=== PATIENT | female | born 1990 | race Caucasian/White ===

== ENCOUNTER 2023-04-22 01:24 | Inpatient (IN) ==
[2023-04-22] MEDS ORDERED: LIDOCAINE 1% LOCAL 20 ML VIAL INFIL PRN (02:59)
[2023-04-22] MEDS ORDERED: OXYTOCIN 30 UNITS/500 ML BAG IV PRN (02:59)
--- NOTE | 2023-04-22 03:14 | History & Physical Report ---
Date of Service April 22, 2023 Assessment & Plan (1) Previous delivery affecting , antepartum: (2) Desires (vaginal after ) trial: Plan 33 yo at 40 3/7 wga admitted w/ srom VSS Fetus cat 1 SROM - Notes indicate that pt desires trial of labor. Extensively reviewed tolac vs repeat CS with risks for tolac including vaginal laceration, uterine rupture and potential catastrophic consequence including hysterectomy, maternal and/or injury and/or , blood transfusion, impact on future deliveries. Discussed potential use for pitocin for augmentation, impact of pitocin on rupture risk. Pt verbalized understanding of discussion and consent for signed after all questions answered to best of my ability and to apparent satisfaction. It sounds like true rom time was around 11pm and is starting to contract, is more dilated now than was in the office on Thursday. Will give couple hours to see if will continue to progress. GBS neg Epidural prn, discussed use of epidural in setting of tolac and pt aware History of Present Illness Chief Complaint: LOF Primary Care Provider: NO PCP 33 yo at 40 3/7 wga presents w/ c/o LOF. Had ?lof earlier today and was instructed to put a pad on with plan for eval if increase in leaking but it did not. Then around 11pm earlier this evening had a large gush and continued leaking after that. She called in as ctx had not started at that time and she was instructed to present for eval. 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 pLTCS for breech G2 current denies hx STIs Allergies Allergy/AdvReac Type Severity Reaction Status Date / Time No Known Allergies Allergy Verified 04/20/23 13:01 Home Medications Medication Instructions Recorded Confirmed Type prenat.vits,phan,umc-itep-jfjga 1 tab PO QAM 08/26/22 04/20/23 History iron 18 mg tablet 18 mg PO QAM 04/17/23 04/20/23 History Patient History Medical History History of chicken pox Tricuspid regurgitation mild Surgical History (Updated 04/22/23 @ 03:08 by Honey Ray MD) Hx of section Family History Father Myocardial infarction age 35 Leukemia Denies family history of Ovarian cancer Breast cancer Colorectal cancer Social History (Updated 09/10/22 @ 10:57 by Jocelyn Melo) Smoking Status: Never smoker Second Hand Exposure: No; Do You Dip or Chew Tobacco: No; Hx Alcohol Use: No Hx Substance Use: No Preferred Language: Latvian Communication Ability: Effective Office Receptionist Required: No Beliefs That Will Affect Care: None marital status: marital status details: Brandon (34) [phone] Current Living Situation: Spouse Current Living Situation Comment: and daughter current occupational status: unemployed 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 Other Information That Helps Us Care for You: No Feels Safe at Home: Yes Safety Concerns: Feels Safe At This Time Assistive Devices: None Physical Exam Genitourinary: Manual OB Exam: + cervical dilation (1.5-2), + cervical effacement 50%, + station -2 and + amniotic fluid (+nitrazine, pooling, ferning) OB Exam Monitor Tracing: + external FHT monitor used, + external uterine monitor used (q8) and + category I (120/mod/+accel/-decel) Results & Data Vital Signs (Past 12 Hours) Vital Signs Temp Pulse Resp BP 04/22/23 01:40 98.1 F 65 17 121/58 L Laboratory Results OB Labs: Blood Type B Negative 10/08/22 Antibody Screen NEGATIVEB 01/26/23 Hemoglobin 11.2 g/dl (12.0-16.0) L 01/26/23 Hematocrit 32.4 % (37.0-47.0) L 01/26/23 Mean Corpuscular Volume 86.4 fL (80.0-100.0) 10/08/22 Platelet Count 224 K/uL (130-400) 10/08/22 Rubella IgG Antibody Immune (Immune) 10/08/22 Rapid Plasma Reagin Nonreactive (Nonreactive) 10/08/22 Hepatitis B Surface Antigen. NON-REACTIVE (NON-REACTIVE) 10/08/22 Hepatitis C Antibody (EIA) NON-REACTIVE (NON-REACTIVE) 10/08/22 HIV (1&2) Ag and Ab Confirmation NON-REACTIVE (NON-REACTIVE) 10/08/22 Glucose 1 Hour 50 gm Load 82 mg/dl (70-130) 01/26/23 OB Optional Labs: Chlamydia trachomatis RNA Not Detected (NotDetected) 09/11/22 Neisseria gonorrhoeae RNA Not Detected (NotDetected) 09/11/22 Labs Reviewed: low risk panorama--ak Diagnostic Findings ant r lat plac Coding Level of Care Code None Diagnoses Previous delivery affecting , antepartum O34.219 Desires (vaginal after ) trial O34.219
[2023-04-22 03:28] LABS: Hematocrit (blood only) 32.4 % (37.0-47.0); Hemoglobin 11.5 g/dl (12.0-16.0); Mean Corpuscular Hemoglobin 31.9 pg (25.0-34.0); Mean Corpuscular Hgb Conc 35.5 g/dL (32.0-36.0); Mean Platelet Volume 9.7 fL (9.4-12.4); Platelet Count 216 K/uL (130-400); RDW Coefficient of Variation 12.3 % (11.5-14.5); RDW Standard Deviation 40.3 fL (36.4-46.3); White Blood Count 11.18 K/ul (4.8-10.8)
[2023-04-22] MEDS: LACTATED RINGER'S 1,000 ML IV PRN ×2 (07:05→09:50)
--- NOTE | 2023-04-22 08:09 | Labor Progress Brief Note ---
Date of Service April 22, 2023 Subjective Says some ctx are stronger and more painful Assessment & Plan (1) Previous delivery affecting , antepartum: (2) Desires (vaginal after ) trial: Plan 33 yo at 40 3/7 wga admitted w/ srom VSS Fetus cat 1 SROM - SVE is unchanged. Discussed use of pitocin to help with contractions, risks and benefits of it. She would like to wait 1 more hour and walk around more and re-evaluate GBS neg Epidural prn, discussed use of epidural in setting of tolac and pt aware Admission and Anticipated Discharge Date Admission Date: April 22, 2023 Physical Exam Genitourinary: Manual OB Exam: + cervical dilation (1.5-2), + cervical effacement 50% and + station -2 OB Exam Monitor Tracing: + external FHT monitor used, + external uterine monitor used (irreg) and + category I (120/mod/+accel/-decel) Results & Data Vital Signs (Past 12 Hours) Vital Signs Temp Pulse Resp BP 04/22/23 07:05 97.7 F 16 04/22/23 07:05 16 04/22/23 07:05 16 04/22/23 07:05 97.7 F 16 04/22/23 04:45 98.2 F 04/22/23 07:03 78 115/70 04/22/23 03:24 18 04/22/23 03:24 98.2 F 71 18 126/61 04/22/23 01:40 98.1 F 65 17 121/58 L Coding Level of Care Code None Diagnoses Previous delivery affecting , antepartum O34.219 Desires (vaginal after ) trial O34.219
[2023-04-22] MEDS ORDERED: LACTATED RINGER'S 1,000 ML IV SCH ×2 (10:00→13:00)
--- NOTE | 2023-04-22 10:03 | Labor Progress Brief Note ---
Date of Service April 22, 2023 Subjective Assumed care from Dr. Ray. Had just been checked and had essentially made no changed. Patient has a rare contraction on the monitor that she does not even really appreciate. Ruptured for 11 hours with no onset of labor. Assessment & Plan (1) PROM (premature rupture of membranes): (2) Previous delivery affecting , antepartum: Plan Long conversation about the situation and the options. I do not feel continued expectant management is appropriate given ruptured for almost 12 hours--GBS neg. No way to know when she will start to labor. Need to either proceed with c/s or start with pitocin augmentation. Pitocin is not contraindicated in this situation, and I have had patients successfully in this prom situation. again discussed the risks of karin--1% chance of uterine rupture, intolerance of labor, ftp and then need for c/s. Discussed increased risk of c/s after failed karin. r/b/se of c/s--The risks of surgery were discussed with the patient including the risks of anesthesia, bleeding requiring transfusion, infection, poor wound healing, urinary retention, damage to surrounding structures including bowels, bladder, vessels, nerves and ureters that may require further surgery, hospitalization or intervention. The other risks of any surgery were discussed including heart attack, blood clots, stroke or . Consent reviewed and signed. Patient understands by having her second c/s , she will be a automatic repeat c/s in further pregnancies. She understands that a successful KARIN has less risk overall to the patient and would allow a KARIN in a subsequent . She wishes to proceed with c/s. Admission and Anticipated Discharge Date Admission Date: April 22, 2023 Physical Exam Physical Exam: cx--deferred toco--rare, irritability efm--110 with mod variability, small accels, no decels Results & Data Vital Signs (Past 12 Hours) Vital Signs Temp Pulse Resp BP 04/22/23 07:05 36.5 C 16 04/22/23 07:05 16 04/22/23 07:05 16 04/22/23 07:05 36.5 C 16 04/22/23 04:45 36.8 C 04/22/23 07:03 78 115/70 04/22/23 03:24 18 04/22/23 03:24 36.8 C 71 18 126/61 04/22/23 01:40 36.7 C 65 17 121/58 L Coding Level of Care Code None Diagnoses PROM (premature rupture of membranes) O42.90 Previous delivery affecting , antepartum O34.219
[2023-04-22] MEDS ORDERED: WATER, STERILE FOR INJ 10 ML VIAL ONE (10:17)
[2023-04-22] MEDS ORDERED: OXYTOCIN 10 UNITS/ML VIAL ONE (10:17)
[2023-04-22] MEDS ORDERED: MoRPHine SULFATE PF 1 MG/ML 10 ML AMP/VIAL ONE (10:17)
[2023-04-22] MEDS ORDERED: fentaNYL citrate PF 100 MCG/2 ML VIAL ONE (10:17)
[2023-04-22] MEDS ORDERED: PHENYLEPHRINE HCL 10 MG/ML VIAL ONE (10:17)
[2023-04-22] MEDS ORDERED: CITRIC ACID/SODIUM CITRATE 15 ML UDC ONE (10:24)
[2023-04-22] MEDS ORDERED: LACTATED RINGER'S 500 ML IV PRN (10:29)
[2023-04-22] MEDS ORDERED: ePHEDrine sulfate 50 MG/ML AMP IV PRN (10:29)
[2023-04-22] MEDS ORDERED: ONDANSETRON INJ 2 MG/ML 2 ML VIAL IV PRN ×2 (10:29→12:47)
[2023-04-22] MEDS ORDERED: KETOROLAC 30 MG/ML VIAL IV PRN ×3 (10:29→12:47)
[2023-04-22] MEDS ORDERED: NALBUPHINE HCL INJ 10 MG/ML AMP IV PRN (10:29)
[2023-04-22] MEDS ORDERED: MoRPHine SULFATE PF 1 MG/ML 10 ML AMP/VIAL INT SPINAL ONE (10:29)
[2023-04-22] MEDS ORDERED: NALOXONE HCL 0.08 MG in SYRINGE 1.8 ML IV PRN (10:29)
[2023-04-22] MEDS ORDERED: diphenhydrAMINE 50 MG/ML VIAL IV PRN ×2 (10:29→12:47)
[2023-04-22] MEDS ORDERED: NALOXONE HCL 1 MG in SODIUM CHLORIDE 0.9% 1000ML 1,000 ML IV PRN (10:29)
[2023-04-22] MEDS ORDERED: NALOXONE HCL 0.4 MG/1 ML VIAL/CARP IV PRN ×2 (10:29→12:31)
[2023-04-22] MEDS ORDERED: SODIUM CHLORIDE 0.9% 1000ML 1,000 ML IV SCH ×2 (10:30→12:45)
[2023-04-22] MEDS ORDERED: NO NARCOTICS OR SEDATIVES SCH (10:30)
[2023-04-22] MEDS ORDERED: DC INTRASPINAL MORPHINE SCH (10:30)
--- NOTE | 2023-04-22 10:40 | Anesthesiology Consultation ---
Date of Service April 22, 2023 Assessment & Plan ASA ASA2 Proposed Anesthesia Anesthesia Type: Spinal Risk / Benefits Reviewed With: PT / POA / Parent / Guardian, Accepts Plan and Informed Consent Obtained History Surgery Operation Date: 04/22/23 11:00 Proposed Procedures p Section in LD(Bilateral) - Zayda Milner MD, FACOG Height/Weight Height: 5 ft 10.08 in Weight: 73.936 kg Allergies Allergy/AdvReac Type Severity Reaction Status Date / Time No Known Allergies Allergy Verified 04/20/23 13:01 Medications Home Medications Medication Instructions Recorded Confirmed Last Taken prenat.vits,phan,jzo-nkti-xciqo 1 tab PO QAM 08/26/22 04/20/23 Unknown iron 18 mg tablet 18 mg PO QAM 04/17/23 04/20/23 Unknown Active Medications Generic Name Dose Route Start Last Admin Trade Name Freq PRN Reason Stop Dose Admin Citric Acid/Sodium Citrate 30 ml 04/23/23 06:00 04/22/23 10:25 Citric Acid/Sodium Citrate 15 Ml Udc PO 04/23/23 06:01 30 ml PREOP MICHAEL Administration Lactated Ringer's 1,000 mls @ 125 mls/hr 04/22/23 02:59 04/22/23 09:50 Lr IV 04/24/23 02:58 999 mls/hr .Q8H PRN Administration L&D Protocol Protocol Past Medical History Medical History History of chicken pox Tricuspid regurgitation mild Exercise / Class Metabolic Activity II 4-5 Yardwork/Stairs/Walk up hill Past Family History Family History Father Myocardial infarction age 35 Leukemia Denies family history of Ovarian cancer Breast cancer Colorectal cancer Past Surgical History Surgical History Hx of section Past Anesthesia History No Hx of Anesthesia Complications and No Family Hx of Anesthesia Complications History of PONV No Hx of PONV and No Hx of Motion Sickness Social History Smoking Status: Never smoker Do You Dip or Chew Tobacco: No Hx Alcohol Use: No Hx Substance Use: No substance use type: does not use Review of Systems denies fever/cough/ colds/ chest pain/ SOB/ KANIKA denies KANIKA Physical Exam Vital Signs Last Vital Signs Temp 36.7 C 04/22/23 09:05 Pulse 78 04/22/23 07:03 Resp 16 04/22/23 07:05 BP 115/70 04/22/23 07:03 ENMT Mouth: no TMJ abnormality and no dentition abnormality Thyromental Distance: > or= 3.5 Finger Breadths Mallampati Class: II Neck neck extension not limited Respiratory normal respiratory effort; no respiratory distress Auscultation: lungs clear to auscultation bilaterally Cardiovascular Rate/Rhythm: regular rate and regular rhythm Neurologic moves all extremities Psychiatric Orientation: alert and oriented x 3 Testing Laboratory Results 04/22/23 03:10 Blood Type B Negative 04/22/23 03:10 Antibody Screen NEGATIVE 04/22/23 03:10
[2023-04-22] MEDS ORDERED: MoRPHine SULFATE PCA 30 MG/30 ML IV PRN (12:31)
[2023-04-22] MEDS ORDERED: diphenhydrAMINE Capsule 25 MG CAP PO PRN (12:47)
[2023-04-22] MEDS ORDERED: BENZOCAINE 20% SPRY 85 APPLN/85 GM CAN EXT PRN (12:47)
[2023-04-22] MEDS ORDERED: PROMETHAZINE HCL 25 MG in SODIUM CHLORIDE 0.9% 50 ML IV PRN (12:47)
[2023-04-22] MEDS ORDERED: MEPERIDINE HCL 50 MG/ML CARP IV PRN (12:47)
[2023-04-22] MEDS ORDERED: HYDROCORTISONE ACETATE 25 MG SUPP PR PRN (12:47)
[2023-04-22] MEDS ORDERED: SENNA 8.6 MG TAB PO PRN (12:47)
[2023-04-22] MEDS ORDERED: MAGNESIUM HYDROXIDE SUSP 30 ML UDC PO PRN (12:47)
[2023-04-22] MEDS ORDERED: DIPHTHERIA/TETANUS/PERTUSSIS Vaccine (Tdap, Age 7+yrs) 0.5mL SYR/VL IM ONE (12:47)
--- NOTE | 2023-04-22 12:51 | Operative Report ---
PG Post Operative Report Pre & Post Diagnosis Operation Date: 04/22/23 11:00 Pre-Op Diagnosis: PROM at 40 3/7 weeks hx of previous desires repeat Post-Op Diagnosis: same I identified the patient and participated in the time-out.: Yes Procedure Operation Date: 04/22/23 11:00 Actual Procedures p Repeat lower transverse Section in LD(Bilateral) - Zayda Milner MD, FACOG Surgeon Zayda Milner MD, FACOG Information Technology Professor Oj Garcia RN Estimated Blood Loss 500 Findings Consistent with Post-Op Diagnosis viable female infant in cephalic presentation, apgars 8/9. utx/tubes/ovs normal bilaterally Fluids 2000cc uop--200cc clear Specimens none Drains bustos Anesthesia Type Spinal Complications none Disposition Accompanied Patient To Recovery: Yes Disposition: L&D Indications Patient is a 33yowf with iup at 40 3/7 weeks. Patient presented with p rom at 11pm the night before. Unfortunately spontaneously labor did not ensue. cx 1-2 cm. Discussed whether to proceed with pitocin augmentation to attempt RACHNA or proceed with c/s. After discussing the r/b/se, she has elected to proceed with repeat c/s. Description of Procedure The patient was taken to the operating room where she was identified verbally and by bracelet. She was seated on the operating table where a spinal anesthetic was placed by anesthesia. She was then placed in the supine position with a leftward tilt. A Bustos catheter was placed sterilely. the patient was prepped and draped in a normal standard fashion. the anesthetic was tested and found NOT to be adequate. The patient was undrapped and another spinal was p laced. She was reprepped and draped. The anesthetic was then tested and found to be adequate. A time-out was held, identifying correct patient, procedure, positioning and preoperative antibiotics. There were no concerns. A Pfannenstiel skin incision was made with a knife and taken down to the underlying layer of fascia with the knife and Bovie electrocautery. Bleeding was attended to with the Bovie. The fascia was incised in the midline with the knife and taken out laterally with scissors. The superior edge of the fascial incision was grasped, elevated and the underlying layer of rectus muscle was taken off bluntly and with scissors. In a similar fashion, the inferior edge of the fascial incision was grasped, elevated and the underlying layer of rectus muscle was taken off bluntly and with scissors. The muscles were bluntly in the midline. The peritoneum was entered bluntly. The incision was then stretched. The bladder blade was placed. The vesicouterine peritoneum was identified, entered with scissors and taken out laterally with scissors. The bladder flap was created digitally A hysterotomy incision was scored with a knife and the incision was stretched superiorly and inferiorly with the blow molding machine operator's fingers. The operators hand was placed into the incision and the head was delivered atraumatically. No nuchal cord. The nose and mouth were bulb suctioned. the rest of the infant was then delivered without difficulty. Loose nuchal cord x 1 reduced. The nose and mouth were again bulb suctioned. The cord was clamped and cut and the infant was then handed off to the awaiting payroll accounting clerk for drying and attention. Cord blood and segment were obtained. The placenta was expressed. The uterus was exteriorized and cleared of all clot and debris with moistened laparotomy sponges. The hysterotomy incision was repaired in two layers, the first in a running locked layer, the second in an imbricating layer. Hemostasis was noted to be good. Posterior cul-de-sac was irrigated and cleared of all clot and debris. The hysterotomy incision was again inspected and found to be hemostatic. the uterus was reinteriorized. Hysterotomy incision was again inspected and several figure of 8 sutures were placed in order for the incision to be hemostatic. Dyllan was placed over the incision and it was dry after 2 minutes of pressue. Rectus muscles were reapproximated with several interrupted stitches of 0 Vicryl. The fascia was then reapproximated with 0 Vicryl starting at the edges and meeting in the midline. The subcuticular tissues were copiously irrigated and bleeding was attended to with cautery. The skin was then closed with 4-0 Vicryl in a subcuticular fashion. All sponge , lap , and needle counts correct times two. The patient tolerated the procedure well and taken to the recovery room in stable condition. I attest to the content of the Intraoperative Record and any orders documented therein. Any exceptions are noted below. OB Procedure Charges 43337
--- NOTE | 2023-04-22 13:55 | Anesthesiology Progress Note ---
Date of Service April 22, 2023 Anesthesia Post Procedure Vital Signs Vital Signs: Temp Pulse Resp BP Pulse Ox 04/22/23 13:40 16 04/22/23 13:30 16 04/22/23 13:20 16 04/22/23 13:10 16 04/22/23 13:00 16 04/22/23 12:50 36.5 C 18 04/22/23 07:05 36.5 C 16 04/22/23 07:05 16 04/22/23 13:53 73 96 04/22/23 13:48 60 96 04/22/23 13:46 59 L 114/61 04/22/23 13:43 64 97 04/22/23 13:38 63 97 04/22/23 13:36 65 120/62 04/22/23 13:33 58 L 97 04/22/23 13:28 67 97 04/22/23 13:26 64 124/59 L 04/22/23 13:23 75 97 04/22/23 13:18 63 97 04/22/23 13:16 69 128/71 04/22/23 13:13 79 96 04/22/23 13:08 66 97 04/22/23 13:03 71 100 04/22/23 12:58 66 99 04/22/23 12:53 63 100 04/22/23 12:50 64 109/57 L 04/22/23 12:48 59 L 100 04/22/23 09:05 36.7 C 04/22/23 07:05 16 04/22/23 07:05 36.5 C 16 04/22/23 04:45 36.8 C 04/22/23 07:03 78 115/70 04/22/23 03:24 18 04/22/23 03:24 36.8 C 71 18 126/61 04/22/23 01:40 36.7 C 65 17 121/58 L Pain Intensity Abdomen: Pain Intensity: 1 Transfer of Care Handoff Completed per policy Notes Mental Status: alert / awake / arousable and participated in evaluation Patient Amnestic to Procedure: Yes Nausea / Vomiting: adequately controlled Pain: adequately controlled Airway Patency, RR, SpO2: stable & adequate BP & HR: stable & adequate Hydration State: stable & adequate Anesthetic Complications: no major complications apparent and Pt Satisfied with anesthetic care
[2023-04-22] MEDS: SIMETHICONE 80 MG CHEW PO SCH ×2 (17:56→22:14)
[2023-04-22] MEDS: OXYTOCIN 20 UNITS in LACTATED RINGER'S 1,000 ML IV SCH (20:49)
[2023-04-22] MEDS: DOCUSATE SODIUM 100 MG CAP PO SCH (22:14)
[2023-04-23] MEDS ORDERED: CITRIC ACID/SODIUM CITRATE 15 ML UDC PO SCH (06:00)
[2023-04-23] MEDS ORDERED: ceFAZolin 2000MG 2,000 MG/15 ML SYR IV SCH (06:00)
[2023-04-23 06:02] LABS: Basophils # (auto) 0.05 K/uL (0-0.2); Basophils % (auto) 0.3 %; Eosinophils # (auto) 0.11 K/uL (0-0.50); Eosinophils % (auto) 0.7 %; Hematocrit (blood only) 31.5 % (37.0-47.0); Hemoglobin 11.5 g/dl (12.0-16.0); Immature Granulocytes # (auto) 0.11 K/uL (0.01-0.20); Immature Granulocytes % (auto) 0.7 %; Lymphocytes # (auto) 1.69 K/uL (1.2-3.4); Lymphocytes % (auto) 10.5 %; Mean Corpuscular Hemoglobin 31.8 pg (25.0-34.0); Mean Corpuscular Hgb Conc 36.5 g/dL (32.0-36.0); Mean Platelet Volume 9.7 fL (9.4-12.4); Monocytes # (auto) 1.36 K/uL (0.11-0.59); Monocytes % (auto) 8.5 %; Neutrophils # (auto) 12.76 K/uL (1.40-6.50); Neutrophils % (auto) 79.3 %; Platelet Count 193 K/uL (130-400); RDW Standard Deviation 38.5 fL (36.4-46.3); Red Blood Count 3.62 M/uL (4.20-5.40); White Blood Count 16.08 K/ul (4.8-10.8)
--- NOTE | 2023-04-23 06:57 | Obstetrical Progress Note ---
Date of Service <Pau Nowak MD - Last Filed: 04/23/23 07:53> April 23, 2023 Assessment & Plan <Pau Nowak MD - Last Filed: 04/23/23 07:53> (1) delivery delivered: Patient with the above mentioned history and findings was evaluated at bedside and found awake, alert, oriented in all spheres, afebrile, and in no acute distress. Overall, patient is doing well clinically. Therefore, will encourage ambulation as tolerated and will resume regular diet. Indwelling Allen will be removed. Will continue monitoring pain levels and d/c PLANT SCIENCE PROFESSOR to progress to PO analgesics. Patient is encouraged to breastfeed and to notify changes in normal lochia such as excessive bleeding (using more than 1 pad per hour), foul smell, or purulent appearance. Will administer Rhogam today. All questions were answered. <Zayda Milner MD, FACOG - Last Filed: 04/23/23 07:54> (1) delivery delivered: Subjective <Pau Nowak MD - Last Filed: 04/23/23 07:53> Tegan is a 33 y/o female who is POD #1 following repeat delivery at 40 3/7 weeks. She reports feeling well overall this morning. Refers mild abdominal cramping & 2/10 pain well managed on analgesics. Voiding through Allen, which is draining clear urine with no blood or sediment in the collecting bag or line. Tolerating meals overnight and able to ambulate some. She is not passing gas or had a bowel movement yet. Has some persistent lochia with some improvement this morning. Currently bottle feeding and attempting to breastfeed. Her blood type is B negative (baby is B positive) and today's Hb is 11.5. She is GBS negative and rubella immune. Constitutional: no fever, no chills or no sweats Denies shortness of breath or difficulty breathing. Cardiovascular: no chest pain or no palpitations Breast: no breast pain Genitourinary (female): no dysuria Neurologic: no headache(s) Denies changes in vision. Physical Exam <Pau Nowak MD - Last Filed: 04/23/23 07:53> General: Alert. Oriented to person, time, and place. Afebrile. No acute distress. Eyes: pupils equal and reactive to light bilaterally, extraocular movements intact. Cardiac: Regular rate and rhythm, no murmurs/rubs/gallops. Respiratory: Clear to auscultation bilaterally a/p, no wheezes/rales/rhonchi. No increased work of breathing. Symmetrical chest rise. No respiratory distress. Abdomen: Soft, nontender, nondistended. Bowel sounds present. Low transverse surgical scar clean, without surrounding erythema or suppuration, and healing well. Uterus: Uterine fundus firm, mildly tender, and palpable below umbilicus. Lower Extremities: No lower extremity edema or swelling. No deep calf pain. Jovanny's negative bilaterally. Psych: Euthymic affect. Mood and affect congruence. Regular speech rate and content. Results & Data <Pau Nowak MD - Last Filed: 04/23/23 07:53> Vital Signs (Past 12 Hours) Vital Signs Temp Pulse Resp BP Pulse Ox O2 Del Method 04/23/23 05:32 18 98 04/23/23 04:00 37.2 C 62 18 121/79 97 Room Air 04/23/23 04:00 18 97 04/23/23 03:15 16 98 04/23/23 02:30 18 98 04/23/23 01:25 20 97 04/23/23 00:30 16 97 04/22/23 23:22 37.4 C 75 18 125/74 97 Room Air 04/22/23 23:22 18 98 04/22/23 23:22 Room Air 04/22/23 22:25 20 98 04/22/23 21:25 20 99 04/22/23 20:25 37.1 C 67 20 130/80 99 Room Air 04/22/23 20:25 20 99 04/22/23 19:25 20 98 <Zayda Milner MD, FACOG - Last Filed: 04/23/23 07:54> Co-Signing Physician Notes Resident Physician Supervision Note: I interviewed and examined the patient. Discussed with Dr. Nowak and agree with findings and plan as documented in the note. Any exceptions or clarifications are listed here: Doing well POD 1. Allen out and void. d/c apricot washer and transition to po. Encourage ambulation. Documented By: Zayda Milner MD, FACOG Resident Activity Tracking <Pau Nowak MD - Last Filed: 04/23/23 07:53> Resident Involvement: Resident Care Provided Care Provided: OB Delivery
[2023-04-23] MEDS: FERROUS SULFATE 325 MG TAB PO SCH (07:53)
[2023-04-23] MEDS: SIMETHICONE 80 MG CHEW PO SCH ×4 (07:53→20:35)
[2023-04-23] MEDS: PRENATAL VITAMIN 1 TAB PO SCH (07:53)
[2023-04-23] MEDS: DOCUSATE SODIUM 100 MG CAP PO SCH ×2 (07:53→20:36)
[2023-04-23] MEDS: oxyCODONE/ACETAMINOPHEN 5mg/325mg TAB PO PRN ×2 (07:54→20:36)
[2023-04-23] MEDS: IBUPROFEN 600 MG TAB PO PRN ×2 (07:54→20:36)
[2023-04-23] MEDS ORDERED: bisacodyL 5 MG TABEC PO SCH (20:00)
--- NOTE | 2023-04-24 07:02 | Obstetrical Progress Note ---
Date of Service <Pau Nowak MD - Last Filed: 04/24/23 07:34> April 24, 2023 Assessment & Plan <Pau Nowak MD - Last Filed: 04/24/23 07:34> (1) delivery delivered: Patient with the above mentioned history and findings was evaluated at bedside and found awake, alert, oriented in all spheres, afebrile, and in no acute distress. Overall patient is progressing well and meeting appropriate post c- section milestones. Will continue monitoring and control of pain. She was encouraged to ambulate as much as tolerated. Should she remain clinically and hemodynamically stable, will consider discharge tomorrow. All questions answered. <Ye Wade MD - Last Filed: 04/24/23 07:55> (1) delivery delivered: Subjective <Pau Nowak MD - Last Filed: 04/24/23 07:34> Tegan is a 33 y/o female who is POD #2 following repeat delivery at 40 3/7 weeks. She reports feeling well overall this morning. Refers mild abdominal cramping & 1/10 pain well managed on oral analgesics. She is voiding spontaneously without difficulty. Tolerating meals overnight and able to ambulate some. She has passed gas but has not had a bowel movement yet. Has some persistent lochia with some improvement this morning. Currently bottle feeding and attempting to breastfeed. Her blood type is B negative (baby is B positive) and most recent Hb is 11.5. Rhogam was administered yesterday. She is GBS negative and rubella immune. Constitutional: no fever, no chills or no sweats Denies shortness of breath or difficulty breathing. Cardiovascular: no chest pain or no palpitations Breast: no breast pain Genitourinary (female): no dysuria Neurologic: no headache(s) Denies changes in vision. Physical Exam <Pau Nowak MD - Last Filed: 04/24/23 07:34> General: Alert. Oriented to person, time, and place. Afebrile. No acute distress. Eyes: pupils equal and reactive to light bilaterally, extraocular movements intact. Cardiac: Regular rate and rhythm, no murmurs/rubs/gallops. Respiratory: Clear to auscultation bilaterally a/p, no wheezes/rales/rhonchi. No increased work of breathing. Symmetrical chest rise. No respiratory distress. Abdomen: Soft, nontender, nondistended. Bowel sounds present. Low transverse surgical scar clean, without surrounding erythema or suppuration, and healing well. Uterus: Uterine fundus firm, mildly tender, and palpable below umbilicus. Lower Extremities: No lower extremity edema or swelling. No deep calf pain. Jovanny's negative bilaterally. Psych: Euthymic affect. Mood and affect congruence. Regular speech rate and content. Results & Data <Pau Nowak MD - Last Filed: 04/24/23 07:34> Vital Signs (Past 12 Hours) Vital Signs Temp Pulse Resp BP Pulse Ox O2 Del Method 04/23/23 23:30 36.6 C 84 18 124/75 97 Room Air 04/23/23 20:20 Room Air 04/23/23 19:00 37.2 C 88 18 123/86 97 Room Air <Ye Wade MD - Last Filed: 04/24/23 07:55> Co-Signing Physician Notes Patient seen with resident and agree with the above findings and plan. Routine care Resident Activity Tracking <Pau Nowak MD - Last Filed: 04/24/23 07:34> Resident Involvement: Resident Care Provided Care Provided: OB Delivery
[2023-04-24 07:41] LABS: Hematocrit (blood only) 31.7 % (37.0-47.0)
[2023-04-24] MEDS: IBUPROFEN 600 MG TAB PO PRN ×2 (09:09→16:20)
[2023-04-24] MEDS: DOCUSATE SODIUM 100 MG CAP PO SCH ×2 (09:09→20:57)
[2023-04-24] MEDS: SIMETHICONE 80 MG CHEW PO SCH ×4 (09:09→20:57)
[2023-04-24] MEDS: PRENATAL VITAMIN 1 TAB PO SCH (09:09)
[2023-04-24] MEDS: FERROUS SULFATE 325 MG TAB PO SCH (09:09)
[2023-04-24] MEDS ORDERED: bisacodyL 10 MG SUPP PR PRN (12:47)
[2023-04-24] MEDS: OXYTOCIN 20 UNITS in LACTATED RINGER'S 1,000 ML IV SCH (16:25)
--- NOTE | 2023-04-25 06:51 | Obstetrical Progress Note ---
Date of Service <Pau Nowak MD - Last Filed: 04/25/23 07:57> April 25, 2023 Assessment & Plan <Pau Nowak MD - Last Filed: 04/25/23 07:57> (1) delivery delivered: Patient with the above mentioned history and findings was evaluated at bedside and found clinically and hemodynamically stable, afebrile, awake, alert, oriented x3, and in no acute distress. Overall, she seems stable and is fit to go home today. Discharge instructions were discussed. Redness above incision may be associated to beginnings of wound cellulitis. Therefore will order Keflex PO to be taken once today prior to discharge and then daily for 7 days. She is to be seen at the clinic next week after completing her antibiotic regimen for re- evaluation of her incision. Her pain will be managed with Advil, Motrin , or Percocet PRN. She is to call to schedule and appointment with her OB for 6 weeks after discharge for her follow up evaluation. All questions were answered. <Daniella Masterson MD, FACOG - Last Filed: 04/25/23 08:54> (1) delivery delivered: Subjective <Pau Nowak MD - Last Filed: 04/25/23 07:57> Tegan is a 33 y/o female who is POD #3 following repeat delivery at 40 3/7 weeks. She reports feeling well overall this morning. Refers mild abdominal cramping & 1/10 pain well managed on oral analgesics. She is voiding spontaneously without difficulty. Tolerating meals overnight and able to ambulate some. She has passed gas and has had a bowel movement. Has some persistent lochia with some improvement this morning. Currently bottle feeding and attempting to breastfeed. Her blood type is B negative (baby is B positive) and most recent Hb is 11.0. Rhogam was administered on 04/23/2023. She is GBS negative and rubella immune. Constitutional: no fever, no chills or no sweats Denies shortness of breath or difficulty breathing. Cardiovascular: no chest pain or no palpitations Breast: no breast pain Genitourinary (female): no dysuria Neurologic: no headache(s) Denies changes in vision. Physical Exam <Pau Nowak MD - Last Filed: 04/25/23 07:57> General: Alert. Oriented to person, time, and place. Afebrile. No acute distress. Eyes: pupils equal and reactive to light bilaterally, extraocular movements intact. Cardiac: Regular rate and rhythm, no murmurs/rubs/gallops. Respiratory: Clear to auscultation bilaterally a/p, no wheezes/rales/rhonchi. No increased work of breathing. Symmetrical chest rise. No respiratory distress. Abdomen: Soft, nontender, nondistended. Bowel sounds present. There is some redness above but not involving the incision without associated pain, warmth, or burning. Low transverse surgical scar clean, without surrounding erythema or suppuration, and healing well. Uterus: Uterine fundus firm, non-tender, and palpable below umbilicus. Lower Extremities: No lower extremity edema or swelling. No deep calf pain. Jovanny's negative bilaterally. Psych: Euthymic affect. Mood and affect congruence. Regular speech rate and content. Results & Data <Pau Nowak MD - Last Filed: 04/25/23 07:57> Vital Signs (Past 12 Hours) Vital Signs Temp Pulse Resp BP Pulse Ox O2 Del Method 04/24/23 23:07 36.7 C 74 20 115/74 96 Room Air 04/24/23 19:24 36.9 C 74 18 108/68 96 Room Air <Daniella Masterson MD, FACOG - Last Filed: 04/25/23 08:54> Co-Signing Physician Notes Resident Physician Supervision Note: I interviewed and examined the patient. Discussed with Dr. Nowak and agree with findings and plan as documented in the note. Any exceptions or clarifications are listed here: [None] Documented By: Daniella Masterson MD, FACOG Resident Activity Tracking <Pau Nowak MD - Last Filed: 04/25/23 07:57> Resident Involvement: Resident Care Provided Care Provided: OB Delivery
[2023-04-25] MEDS: SIMETHICONE 80 MG CHEW PO SCH ×2 (07:48→13:19)
[2023-04-25] MEDS: PRENATAL VITAMIN 1 TAB PO SCH (07:48)
[2023-04-25] MEDS: FERROUS SULFATE 325 MG TAB PO SCH (07:48)
[2023-04-25] MEDS: DOCUSATE SODIUM 100 MG CAP PO SCH (07:48)
[2023-04-25] MEDS ORDERED: cephALEXin 500 MG CAP PO ONE (08:24)
[2023-04-25] MEDS: IBUPROFEN 600 MG TAB PO PRN (10:33)
== END 2023-04-25 14:25 | disposition home or self-care (01) | DRG 788 ==
LOC: OPB 01:24 → 4S1 01:30 → 4E2 15:40